=== PATIENT | female | born 1965 | race Caucasian/White ===

== ENCOUNTER 2018-08-24 13:43 | Emergency (ER) | payer OTHER ==
--- NOTE | 2018-08-24 14:29 | EDM.PDOC ---
ED HPI GENERAL MEDICAL PROBLEM - General Chief Complaint: Cardiovascular Problem Stated Complaint: HIGH BP Time Seen by Provider: 08/24/18 14:15 - History of Present Illness INITIAL COMMENTS - FREE TEXT/NARRATIVE: 53-year-old who presents with concerns of asymptomatic hypertension. She notes that she was first told she has hypertension her recent visit for a broken wrist. She is in the area visiting her mother who had a stroke, this is quite distressing for the patient to see. She went into [facility] this afternoon and checked her blood pressure found it to be elevated prompting her presentation to the emergency department now. She denies any chest pain. She has no headache. No weakness. No shortness of breath. She has never been on any antihypertensive agents. She has no history of heart disease. - Related Data Allergies Allergy/AdvReac Type Severity Reaction Status Date / Time shellfish derived Allergy Swelling Verified 08/24/18 14:06 Home Meds: Home Meds Pantoprazole [ProTONIX] 40 mg PO DAILY 08/24/18 [History] QUEtiapine [SEROquel] 50 mg PO DAILY 08/24/18 [History] clonazePAM [Klonopin] 1 mg PO BID PRN 08/24/18 [History] traZODone 100 mg PO BEDTIME 08/24/18 [History] Past Medical History Respiratory History: Reports: Asthma Gastrointestinal History: Reports: Other (See Below) Other Gastrointestinal History: fatty liver healed Musculoskeletal History: Reports: Arthritis Psychiatric History: Reports: Anxiety Social & Family History - Caffeine Use Caffeine Use: Reports: Soda - Recreational Drug Use Recreational Drug Use: No ED ROS GENERAL - Review of Systems Review Of Systems: See Below Constitutional: Reports: No Symptoms HEENT: Reports: No Symptoms Respiratory: Reports: No Symptoms Cardiovascular: Reports: No Symptoms Endocrine: Reports: No Symptoms GI/Abdominal: Reports: No Symptoms : Reports: No Symptoms Musculoskeletal: Reports: No Symptoms Skin: Reports: No Symptoms Neurological: Reports: No Symptoms Psychiatric: Reports: No Symptoms Hematologic/Lymphatic: Reports: No Symptoms Immunologic: Reports: No Symptoms ED EXAM, GENERAL - Physical Exam Exam: See Below Exam Limited By: No Limitations General Appearance: Alert, No Apparent Distress Eye Exam: Bilateral Eye: EOMI Nose: Normal Inspection Throat/Mouth: Normal Inspection Head: Atraumatic, Normocephalic Neck: Normal Inspection Respiratory/Chest: No Respiratory Distress, Lungs Clear Cardiovascular: Regular Rate, Rhythm GI/Abdominal: Soft, Non-Tender, No Distention Back Exam: Normal Inspection Extremities: Normal Inspection Neurological: Alert, Oriented, CN II-XII Intact, Normal Gait, No Motor/Sensory Deficits Psychiatric: Normal Affect, Normal Mood Skin Exam: Warm, Dry Course - Vital Signs Last Recorded V/S: Last Vital Signs Temp 35.8 C 08/24/18 14:02 Pulse 96 08/24/18 14:15 Resp 16 08/24/18 14:15 BP 175/111 H 08/24/18 14:15 Pulse Ox 97 08/24/18 14:15 - Re-Assessments/Exams Free Text/Narrative Re-Assessment/Exam: This 53-year-old female who presents with asymptomatic hypertension. She has no other concerns to suggest a hypertensive emergency. She notes elevated BPs today, measured to 170/110 here, in the setting of visiting her mother who had a stroke which is quite upsetting for the patient. we discussed that the distressing situation with her family may be contributing to her elevated BPs. I suggested the patient make a close follow-up appointment with her primary doctor in the [facility] for a recheck rather than starting an antihypertensive agent in the ED today. Patient is agreeable with this. Discharged 08/24/18 14:32 Departure - Departure Time of Disposition: 14:26 Disposition: Home, Self-Care 01 Clinical Impression: Asymptomatic hypertension Instructions: Hypertension Referrals: PCP,None [Primary Care Provider] - Forms: ED Department Discharge Additional Instructions: Please follow up with your primary doctor as discussed to recheck your blood pressure discuss further treatment.
== END 2018-08-24 14:39 | disposition home or self-care (01) ==
LOC: JP.ED 13:43
DX: I10 Essential (primary) hypertension (principal); J45.909 Unspecified asthma, uncomplicated; Z79.899 Other long term (current) drug therapy; Z91.013 Allergy to seafood
CPT/HCPCS: 99282